=== PATIENT | female | born 1990 | race Caucasian/White ===

== ENCOUNTER 2017-10-21 00:14 | Emergency (ER) | payer SELFPAY ==
[~2017-10-21] VITALS: Ht 162.6 cm; Wt 62.9 kg
[~2017-10-21 00:14] MED LIST: NUVARING VAGIN1 EACH PO; PHENERGAN25 MG PR; ZOFRAN ODT4 MG PO
[2017-10-21] MEDS ORDERED: KEFLEX500 MG PO (01:54)
[2017-10-21] MEDS ORDERED: BACTRIM,SEPT1 TABLET PO (01:54)
[2017-10-21 02:14] VITALS: BP 128/91
== END 2017-10-21 02:15 | disposition home or self-care (01) ==
LOC: EME 00:14
DX: L02.31 Cutaneous abscess of buttock (principal); F17.200 Nicotine dependence, unspecified, uncomplicated